=== PATIENT | female | born 1980 | race Caucasian/White ===

== ENCOUNTER 2017-05-10 11:39 | Observation (INO) | payer OTHER ==
[2017-05-10] MEDS ORDERED: ASPIRIN 81 MG PO STA (12:17)
--- NOTE | 2017-05-10 12:53 | ED ---
General Adult HPI - General Source: patient, RN notes reviewed Mode of arrival: ambulatory Limitations: no limitations <Ilda Martinez - Last Filed: 05/10/17 14:18> <Solomon Núñez - Last Filed: 05/10/17 14:29> - General Stated complaint: CHEST TIGHTNESS, ISADORA Time Seen by Provider: 05/10/17 12:12 - History of Present Illness Initial comments: 36 yo female presents to the ER with cc of increased heart rate palpitations. She states that this happened last night she woke up feeling fine and then this morning at work today and she started to feel this way again she states they took her pulse and it was up to 115. She states that it feels like a tightness in her chest she feels her heart starts beating. She starts to feel flushed. She does admit to a little twinge the left side of the neck. Patient does admit to minimal nausea. She states this happened about one month ago. She went to the emergency Hospital and had a negative stress test. Patient states this is much like that episode now. She was told that time most likely anxiety. They wanted to have her reevaluated due to the symptoms recurring. She does admit to history of diabetes. Patient denies any recent fever, chills, shortness of breath, back pain, abdominal pain, vomiting, numbness or tingling , dysuria or hematuria, constipation or diarrhea, headaches or visual changes, or any other current symptoms. (Ilda Martinez) - Related Data Home Medications Medication Instructions Recorded Confirmed ALPRAZolam [Xanax] 0.5 mg PO TID PRN 05/10/17 05/10/17 Melatonin 5 mg PO HS PRN 05/10/17 05/10/17 sitaGLIPtin [Januvia] 50 mg PO DAILY 05/10/17 05/10/17 Allergies Allergy/AdvReac Type Severity Reaction Status Date / Time alcohol Allergy Rash/Hives Verified 05/10/17 13:48 bupropion [From Wellbutrin] Allergy Rapid Verified 05/10/17 13:48 Heart Rate Penicillins Allergy Anaphylaxis Verified 05/10/17 13:48 Review of Systems ROS Other: All systems not noted in ROS Statement are negative. <Ilda Martinez - Last Filed: 05/10/17 14:18> ROS Other: All systems not noted in ROS Statement are negative. <WiltonSolomonVirgilio - Last Filed: 05/10/17 14:29> ROS Statement: Those systems with pertinent positive or pertinent negative responses have been documented in the HPI. Past Medical History Past Medical History: Diabetes Mellitus Additional Past Medical History / Comment(s): Type 2 DM History of Any Multi-Drug Resistant Organisms: None Reported Past Surgical History: Adenoidectomy, Cholecystectomy, Hernia Repair, Tonsillectomy Past Psychological History: Anxiety, Depression Smoking Status: Former smoker Past Alcohol Use History: None Reported Past Drug Use History: None Reported <Ilda Martinez - Last Filed: 05/10/17 14:18> General Exam Limitations: no limitations <Ilda Martinez - Last Filed: 05/10/17 14:18> <Solomon Núñez - Last Filed: 05/10/17 14:29> - General Exam Comments Initial Comments: General: The patient is awake and alert, in no distress, and does not appear acutely ill. Eye: Pupils are equal, round and reactive to light, extra-ocular movements are intact; there is normal conjunctiva bilaterally. No signs of icterus. Ears, nose, mouth and throat: There are moist mucous membranes. Neck: The neck is supple, there is no tenderness. Cardiovascular: There is a regular rate and rhythm. No murmur, rub or gallop is appreciated. Respiratory: Lungs are clear to auscultation, respirations are non-labored, breath sounds are equal. No wheezes, stridor, rales, or rhonchi. Gastrointestinal: Soft, non-distended, non-tender abdomen without masses or organomegaly noted. There is no rebound or guarding present. No CVA tenderness. Bowel sounds are unremarkable. Back: There is no tenderness to palpation in the midline. There is no obvious deformity. No rashes noted. Musculoskeletal: Normal ROM, no tenderness, There is no pedal edema. There is no calf tenderness or swelling. Sensation intact. Pulses equal bilaterally 2+. Neurological: CN II-XII intact, There are no obvious motor or sensory deficits. Coordination appears grossly intact. Speech is normal. Skin: Skin is warm and dry and no rashes or lesions are noted. Psychiatric: Cooperative, appropriate mood & affect, normal judgment. (Ilda Martinez) Vital Signs 05/10/17 11:55 Temperature 98.8 F Pulse Rate 108 H Respiratory 18 Rate Blood Pressure 179/91 O2 Sat by Pulse 100 Oximetry EKG Findings - EKG Comments: EKG Findings:: normal sinus rhythm 95 bpm, normal axis, no atopy, no S-T depressions or elevations, <Ilda Martinez - Last Filed: 05/10/17 14:18> Medical Decision Making - Lab Data Result diagrams: 05/10/17 12:53 05/10/17 12:53 - Radiology Data Radiology results: report reviewed, image reviewed <Ilda Martinez - Last Filed: 05/10/17 14:18> - Lab Data Result diagrams: 05/10/17 12:53 05/10/17 12:53 <Solomon Núñez - Last Filed: 05/10/17 14:29> - Medical Decision Making 36-year-old female presents for palpitations and chest tightness. At this time patient continues to have minimal pain. At this time due to the patient's diabetic history as well as obesity and the continued chest tightness we will admit the patient for cardiac rule out. This was discussed with Dr. Caldwell who is in agreement this plan. All questions have been answered. Patient will be admitted at this time. (Ilda Martinez) The patient was seen and examined. All diagnostics were reviewed. Case is discussed with Dr. Caldwell and he is agreeable to admission. Case is discussed with the PA and I agree with findings as documented. (Solomon Núñez) - Lab Data Lab Results 05/10/17 05/10/17 05/10/17 Range/Units 12:53 12:53 12:53 WBC 15.9 H (3.8-10.6) k/uL RBC 4.94 (3.80-5.40) m/uL Hgb 14.4 (11.4-16.0) gm/dL Hct 41.4 (34.0-46.0) % MCV 83.7 (80.0-100.0) fL MCH 29.0 (25.0-35.0) pg MCHC 34.7 (31.0-37.0) g/dL RDW 12.7 (11.5-15.5) % Plt Count 416 (150-450) k/uL Neutrophils % 77 % Lymphocytes % 17 % Monocytes % 4 % Eosinophils % 1 % Basophils % 0 % Neutrophils # 12.2 H (1.3-7.7) k/uL Lymphocytes # 2.7 (1.0-4.8) k/uL Monocytes # 0.7 (0-1.0) k/uL Eosinophils # 0.1 (0-0.7) k/uL Basophils # 0.1 (0-0.2) k/uL PT (9.0-12.0) sec INR (<1.2) APTT (22.0-30.0) sec D-Dimer (<0.60) mg/L FEU Sodium 142 (137-145) mmol/L Potassium 3.9 (3.5-5.1) mmol/L Chloride 106 (98-107) mmol/L Carbon Dioxide 25 (22-30) mmol/L Anion Gap 11 mmol/L BUN 11 (7-17) mg/dL Creatinine 0.64 (0.52-1.04) mg/dL Est GFR (CKD-EPI)AfAm >90 (>60 ml/min/1.73 sqM) Est GFR (CKD-EPI)NonAf >90 (>60 ml/min/1.73 sqM) Glucose 109 H (74-99) mg/dL Calcium 9.9 (8.4-10.2) mg/dL Magnesium 1.7 (1.6-2.3) mg/dL Total Bilirubin 0.5 (0.2-1.3) mg/dL AST 16 (14-36) U/L ALT 32 (9-52) U/L Alkaline Phosphatase 84 (38-126) U/L Total Creatine Kinase 50 (30-135) U/L CK-MB (CK-2) 0.6 (0.0-2.4) ng/mL CK-MB (CK-2) Rel Index 1.2 Troponin I <0.012 (0.000-0.034) ng/mL Total Protein 7.2 (6.3-8.2) g/dL Albumin 4.2 (3.5-5.0) g/dL 05/10/17 Range/Units 12:53 WBC (3.8-10.6) k/uL RBC (3.80-5.40) m/uL Hgb (11.4-16.0) gm/dL Hct (34.0-46.0) % MCV (80.0-100.0) fL MCH (25.0-35.0) pg MCHC (31.0-37.0) g/dL RDW (11.5-15.5) % Plt Count (150-450) k/uL Neutrophils % % Lymphocytes % % Monocytes % % Eosinophils % % Basophils % % Neutrophils # (1.3-7.7) k/uL Lymphocytes # (1.0-4.8) k/uL Monocytes # (0-1.0) k/uL Eosinophils # (0-0.7) k/uL Basophils # (0-0.2) k/uL PT 9.6 (9.0-12.0) sec INR 1.0 (<1.2) APTT 23.3 (22.0-30.0) sec D-Dimer 0.19 (<0.60) mg/L FEU Sodium (137-145) mmol/L Potassium (3.5-5.1) mmol/L Chloride (98-107) mmol/L Carbon Dioxide (22-30) mmol/L Anion Gap mmol/L BUN (7-17) mg/dL Creatinine (0.52-1.04) mg/dL Est GFR (CKD-EPI)AfAm (>60 ml/min/1.73 sqM) Est GFR (CKD-EPI)NonAf (>60 ml/min/1.73 sqM) Glucose (74-99) mg/dL Calcium (8.4-10.2) mg/dL Magnesium (1.6-2.3) mg/dL Total Bilirubin (0.2-1.3) mg/dL AST (14-36) U/L ALT (9-52) U/L Alkaline Phosphatase (38-126) U/L Total Creatine Kinase (30-135) U/L CK-MB (CK-2) (0.0-2.4) ng/mL CK-MB (CK-2) Rel Index Troponin I (0.000-0.034) ng/mL Total Protein (6.3-8.2) g/dL Albumin (3.5-5.0) g/dL Disposition Decision Date: 05/10/17 Decision Time: 14:13 <Ilda Martinez - Last Filed: 05/10/17 14:18> <Solomon Núñez - Last Filed: 05/10/17 14:29> Clinical Impression: Unstable angina Disposition: ADMITTED IP TO THIS HOSP Condition: Stable Referrals: Jeannette Brady MD [Primary Care Provider] - 1-2 days
[2017-05-10 13:14] LABS: Basophils # (A) 0.1 k/uL (0-0.2); Basophils % (A) 0 %; Eosinophils # (A) 0.1 k/uL (0-0.7); Eosinophils % (A) 1 %; HCT 41.4 % (34.0-46.0); HGB 14.4 gm/dL (11.4-16.0); Lymphocytes # (A) 2.7 k/uL (1.0-4.8); Lymphocytes % (A) 17 %; MCHC 34.7 g/dL (31.0-37.0); MCV 83.7 fL (80.0-100.0); Mean Platelet Volume 6.5; Monocytes # (A) 0.7 k/uL (0-1.0); Monocytes % (A) 4 %; Neutrophils # (A) 12.2 k/uL (1.3-7.7); Neutrophils % (A) 77 %; Platelet Count 416 k/uL (150-450); RBC 4.94 m/uL (3.80-5.40); RDW 12.7 % (11.5-15.5); WBC 15.9 k/uL (3.8-10.6)
[2017-05-10 13:20] LABS: ALT 32 U/L (9-52); AST 16 U/L (14-36); Albumin 4.2 g/dL (3.5-5.0); Alkaline Phosphatase 84 U/L (38-126); Anion Gap 11 mmol/L; Blood Urea Nitrogen 11 mg/dL (7-17); Calcium 9.9 mg/dL (8.4-10.2); Carbon Dioxide 25 mmol/L (22-30); Chloride 106 mmol/L (98-107); Glucose 109 mg/dL (74-99); Magnesium 1.7 mg/dL (1.6-2.3); Potassium 3.9 mmol/L (3.5-5.1); Sodium 142 mmol/L (137-145); Total Bilirubin 0.5 mg/dL (0.2-1.3); Total Protein 7.2 g/dL (6.3-8.2)
[2017-05-10 13:27] LABS: D-Dimer 0.19 mg/L FEU (<0.60); Partial Thromboplastin Time 23.3 sec (22.0-30.0); Prothrombin Time 9.6 sec (9.0-12.0)
[2017-05-10 13:31] LABS: Creatine Kinase 50 U/L (30-135)
--- NOTE | 2017-05-10 13:41 | XR ---
EXAMINATION TYPE: XR chest 2V DATE OF EXAM: 05/10/2017 COMPARISON: Previous dated 08/29/2009 HISTORY: Chest pain TECHNIQUE: Frontal and lateral views of the chest are obtained. FINDINGS: There is no focal air space opacity, pleural effusion, or pneumothorax seen. The cardiac silhouette size is within normal limits. The osseous structures are intact. There are overlying car diac leads, patient is rotated. IMPRESSION: No acute cardiopulmonary process.
[2017-05-10 13:43] LABS: Creatine Kinase MB 0.6 ng/mL (0.0-2.4); Troponin I <0.012 ng/mL (0.000-0.034)
[2017-05-10] MEDS ORDERED: NITROGLYCERIN SL TABS 0.4 MG TAB SUBLINGUAL PRN (14:13)
[2017-05-10] MEDS ORDERED: MELATONIN 5 MG TABLET PO PRN (14:15)
[2017-05-10] MEDS ORDERED: ALPRAZolam 0.5 MG TAB PO PRN (14:15)
[2017-05-10 14:52] LABS: Glucose,Whole Blood 95 mg/dL (75-99)
[2017-05-10 15:12] LABS: Appearance,Urine Clear (Clear); Bilirubin,Urine Negative (Negative); Blood,Urine Negative (Negative); Color,Urine Colorless; Glucose,Urine (UA) Negative (Negative); Ketones,Urine Negative (Negative); Leukocyte Esterase,Urine Negative (Negative); Nitrite,Urine Negative (Negative); Protein,Urine Negative (Negative); Specific Gravity,Urine 1.002 (1.001-1.035); Urobilinogen,Urine <2.0 mg/dL (<2.0)
[2017-05-10] MEDS ORDERED: RX INFO: IV CONTRAST WAS GIVEN 1 EACH MISC MISCELLANE PRN (16:56)
[2017-05-10] MEDS: SODIUM CHLORIDE 0.9% 1,000 ML IV SCH (17:30)
[2017-05-10] MEDS ORDERED: ACETAMINOPHEN TAB 500 MG TAB PO PRN (17:33)
[2017-05-10 17:54] LABS: Glucose,Whole Blood 134 mg/dL (75-99)
--- NOTE | 2017-05-10 18:12 | CT ---
EXAMINATION TYPE: CT chest w con DATE OF EXAM: 05/10/2017 COMPARISON: Chest x-ray same date, chest CT 08/31/2009 HISTORY: Chest pain. CT DLP: 587 mGycm Automated exposure control for dose reduction was used. CONTRAST: CT scan of the chest is performed with IV Contrast, patient injected with 100ml mL of Omnipaque 300. FINDINGS: LUNGS: The lungs are grossly clear, there is no concerning parenchymal mass or nodule identified. T here is no pleural effusion or pneumothorax seen. Some minimal subpleural nodularity likely represent s postinflammatory change. The tracheobronchial tree is patent. MEDIASTINUM: There are no greater than 1 cm hilar or mediastinal lymph nodes. No pericardial effusi on is seen. AORTA: No additional significant abnormality is seen. OTHER: Right kidney is somewhat lobular in appearance. Liver shows low attenuation in likely represe nts hepatic steatosis. Patient is post cholecystectomy IMPRESSION: No acute abnormality. Additional findings above.
--- NOTE | 2017-05-10 19:11 | HP ---
HISTORY AND PHYSICAL DATE OF SERVICE: 05/10/2017. CHIEF COMPLAINT: Chest pain. HISTORY OF PRESENT ILLNESS: This 36-year-old woman with a past medical history of multiple medical problems including diabetes type 2, history of adenoidectomy, cholecystectomy, history of anxiety and depression, being followed by Dr. Brady in the outpatient setting, was complaining of chest pain for the last several days. The pain was apparent for at least 1 week which was nagging in character, felt in the left side of the chest, radiating to the left shoulder. Yesterday the pain was about 6/10 in intensity. Because of the increase in the pain, she came to [facility] and was admitted for further evaluation and treatment. The patient also had high blood pressure and noted tachycardia also. The patient had an evaluation apparently about a month ago and cardiac workup was done during that time. The results are not available. The possibility of anxiety is also being considered. There is no history of fevers or rigors. No history of headache, loss of consciousness, seizures. PAST MEDICAL HISTORY: History of diabetes type 2, history of adenoidectomy, cholecystectomy, anxiety and depression. MEDICATIONS: 1. Melatonin 5 mg at bedtime p.r.n. 2. Janumet 50 mg. 3. Xanax 0.5 t.i.d. p.r.n. ALLERGIES: ALCOHOL, WELLBUTRIN, PENICILLIN. FAMILY HISTORY: No history of heart disease or strokes in family. SOCIAL HISTORY: Previous history of smoking. REVIEW OF SYSTEMS: ENT: No diminished hearing or vision. CARDIOVASCULAR: As mentioned earlier. RESPIRATORY: As mentioned earlier. GI: As mentioned. : No dysuria. ALLERGY/IMMUNOLOGY: As mentioned. MUSCULOSKELETAL: As mentioned earlier. HEMATOLOGY: No anemia. ENDOCRINE: No history of diabetes or hypothyroidism. CONSTITUTIONAL: Negative. RHEUMATOLOGY: Negative. PSYCHIATRY: As mentioned. PHYSICAL EXAMINATION: Alert, oriented x3. Pulse 97, blood pressure 130/60, respiration 18, temperature 98 degrees, pulse ox 98% On 2 L. HEENT: Conjunctivae normal. Oral mucosa moist. NECK: No jugular venous distention. No lymph node enlargement. CARDIOVASCULAR: S1 and S2 muffled. No S3 or S4. LUNGS: Breath sounds diminished at the bases. No rhonchi. No crackles. ABDOMEN: Soft, nontender. No mass palpable. LEGS: No edema, no swelling. NERVOUS SYSTEM: Higher functions as mentioned earlier. Moves all four limbs. LYMPHATICS: No lymph nodes palpable in the neck or axillae. SKIN: No ulcers or rash. LABS: CBC and BMP within normal. WBC 16.2. ASSESSMENT: 1. Left-sided chest pain, possibly musculoskeletal; rule out coronary artery disease. 2. Increased WBC. 3. Diabetes type 2. 4. History of adenoidectomy. 5. History of cholecystectomy. 6. History of hernia repair. 7. Anxiety and depression. RECOMMENDATIONS: Recommend to continue current management and symptomatic treatment. negative. Troponin also within normal limits. The chest x-ray note showed no acute cardiopulmonary lesions. EKG shows normal sinus rhythm with some ST-T changes. I would also recommend a CT scan also to complete the workup. Otherwise we will follow the patient closely. After discharge the patient will be asked to follow closely with Dr. Brady. SHELBY / ALEJANDRA: [id number] / MTDMark
[2017-05-10 19:19] VITALS: RESP 16
[2017-05-10 19:39] LABS: Creatine Kinase 41 U/L (30-135)
[2017-05-10 19:53] LABS: Creatine Kinase MB 0.4 ng/mL (0.0-2.4); Troponin I <0.012 ng/mL (0.000-0.034)
[2017-05-10] MEDS: NITROGLYCERIN OINT 1 INCH/GM PACKET TOPICAL SCH (20:30)
[2017-05-10 20:39] LABS: Glucose,Whole Blood 120 mg/dL (75-99)
[2017-05-10 20:46] LABS: Amphetamine Screen,Urine Not Detected (NotDetected); Barbiturate Screen,Urine Not Detected (NotDetected); Benzodiazepines Screen,Urine Not Detected (NotDetected); Cocaine Screen,Urine Not Detected (NotDetected); Methadone Screen, Urine Not Detected (NotDetected); Opiate Screen,Urine Not Detected (NotDetected); Oxycodone Screen, Urine Not Detected (NotDetected); Phencyclidine Screen,Urine Not Detected (NotDetected); Tricyclic Antidepressant,Urine Not Detected (NotDetected); Urn Cannabinoid Scrn Not Detected (NotDetected)
[2017-05-10] MEDS: IBUPROFEN 800 MG TAB PO PRN (21:12)
[2017-05-11 01:44] LABS: Creatine Kinase 32 U/L (30-135)
[2017-05-11 01:56] LABS: Creatine Kinase MB 0.2 ng/mL (0.0-2.4); Troponin I <0.012 ng/mL (0.000-0.034)
[2017-05-11] MEDS: SODIUM CHLORIDE 0.9% 1,000 ML IV SCH ×2 (03:58→10:38)
[2017-05-11 06:39] LABS: Glucose,Whole Blood 111 mg/dL (75-99)
[2017-05-11 07:12] LABS: Basophils # (A) 0.1 k/uL (0-0.2); Basophils % (A) 1 %; Eosinophils # (A) 0.2 k/uL (0-0.7); Eosinophils % (A) 2 %; HCT 38.4 % (34.0-46.0); HGB 13.3 gm/dL (11.4-16.0); Lymphocytes # (A) 3.5 k/uL (1.0-4.8); Lymphocytes % (A) 35 %; MCH 29.8 pg (25.0-35.0); MCHC 34.7 g/dL (31.0-37.0); MCV 85.8 fL (80.0-100.0); Mean Platelet Volume 6.5; Monocytes # (A) 0.5 k/uL (0-1.0); Monocytes % (A) 5 %; Neutrophils # (A) 5.5 k/uL (1.3-7.7); Neutrophils % (A) 56 %; Platelet Count 377 k/uL (150-450); RBC 4.47 m/uL (3.80-5.40); RDW 12.8 % (11.5-15.5); WBC 9.8 k/uL (3.8-10.6)
[2017-05-11 07:47] LABS: Anion Gap 9 mmol/L; Blood Urea Nitrogen 12 mg/dL (7-17); Calcium 9.3 mg/dL (8.4-10.2); Carbon Dioxide 27 mmol/L (22-30); Chloride 106 mmol/L (98-107); Cholesterol 174 mg/dL (<200); Glucose 112 mg/dL (74-99); HDL Cholesterol 32 mg/dL (40-60); LDL Cholesterol,Calculated 116 mg/dL (0-99); Potassium 4.4 mmol/L (3.5-5.1); Sodium 142 mmol/L (137-145); Triglycerides 132 mg/dL (<150)
[2017-05-11] MEDS ORDERED: ASPIRIN 81 MG PO SCH (09:00)
[2017-05-11] MEDS ORDERED: LINAGLIPTIN 5 MG TABLET PO SCH (09:00)
[2017-05-11] MEDS ORDERED: ASPIRIN 325 MG TAB PO SCH (09:00)
[2017-05-11] MEDS ORDERED: METOPROLOL TARTRATE 12.5 MG TAB PO SCH (09:10)
--- NOTE | 2017-05-11 11:24 | P.CRDCN ---
History of Present Illness Consult date: 05/11/17 Consult reason: hypertension History of present illness: Mrs. Rosales is a pleasant 36-year-old female past medical history significant for diabetes mellitus, anxiety and depression. She denies history of coronary artery disease personally but does have significant family history of premature heart disease. She states Sunday night while she was sitting down watching TV she started feeling palpitations, tightness in her chest and flushed feeling. These symptoms persisted for approximately an hour and she went to bed. She woke up in the morning feeling ok with no symptoms of palpitations, chest pain or flushed feeling. She proceeded to go to work with no symptoms. After she was there for a little while the symptoms seemed to come back. 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 She was extremely flushed feeling, heart racing and chest tightness. She recalls that she had these identical symptoms last month and was evaluated at [facility]. At that time she underwent a stress test, echocardiogram and medications were adjusted. Prior to that event she was taking hydrochlorothiazide. This was discontinued and she was started on lisinopril and atorvastatin. She states she took these medications for a couple of weeks and noticed she was feeling dizzy so she checked her blood pressure and it was low 70/30. She called her PCP and stopped the lisinopril. Blood pressure on arrival here was 179/91 heart rate 108. Subsequent blood pressure readings have all been less than 160 systolic this morning being 122/61 heart rate 74. EKG reveals sinus mechanism with no acute ST or T-wave abnormalities. Chest x- ray negative for acute cardiopulmonary process. CT negative for pulmonary embolism. Laboratory data was reviewed cardiac enzymes negative 3, d-dimer negative, LDL 116, WBC 15.9 on admission repeat this morning 9.8, hemoglobin 13.3, platelets 377, potassium 4.4, magnesium 1.7. Review of Systems The time of my exam: CONSTITUTIONAL: Denies fever. Denies chills. EYES: Denies blurred vision. Denies vision changes. Denies eye pain. EARS, NOSE, MOUTH & THROAT: Denies headache. Denies sore throat. Denies ear pain. CARDIOVASCULAR: Denies chest pain. Denies shortness of breath. Denies orthopnea. Denies PND. Denies palpitations. RESPIRATORY: Denies cough. GASTROINTESTINAL: Denies abdominal pain. Denies diarrhea. Denies constipation. Denies nausea. Denies vomiting. MUSCULOSKELETAL: Denies myalgias. INTEGUMENTARY: Denies pruitis. Denies rash. NEUROLOGIC: Denies numbness. Denies tingling. Denies weakness. PSYCHIATRIC: Denies anxiety. Denies depression. ENDOCRINE: Denies fatigue. Denies weight change. Denies polydipsia. Denies polyurina. GENITOURINARY: Denies burning, hematuria or urgency with micturation. HEMATOLOGIC: Denies history of anemia. Denies bleeding. Past Medical History Past Medical History: Diabetes Mellitus Additional Past Medical History / Comment(s): Type 2 DM History of Any Multi-Drug Resistant Organisms: None Reported Past Surgical History: Adenoidectomy, Cholecystectomy, Hernia Repair, Tonsillectomy Past Anesthesia/Blood Transfusion Reactions: No Reported Reaction Past Psychological History: Anxiety, Depression Smoking Status: Former smoker Past Alcohol Use History: None Reported Past Drug Use History: None Reported Medications and Allergies Home Medications Medication Instructions Recorded Confirmed Type ALPRAZolam [Xanax] 0.5 mg PO TID PRN 05/10/17 05/10/17 History Melatonin 5 mg PO HS PRN 05/10/17 05/10/17 History sitaGLIPtin [Januvia] 50 mg PO DAILY 05/10/17 05/10/17 History Atorvastatin [Lipitor] 20 mg PO DAILY #30 tab 05/11/17 Rx Metoprolol Tartrate [Lopressor] 12.5 mg PO BID #60 tab 05/11/17 Rx Allergies Allergy/AdvReac Type Severity Reaction Status Date / Time alcohol Allergy Rash/Hives Verified 05/10/17 13:48 bupropion [From Wellbutrin] Allergy Rapid Verified 05/10/17 13:48 Heart Rate Penicillins Allergy Anaphylaxis Verified 05/10/17 13:48 Physical Exam Vitals: Vital Signs Temp Pulse Pulse Resp BP BP Pulse Ox 05/11/17 08:00 74 16 05/11/17 07:38 97.9 F 74 16 122/61 98 05/11/17 03:43 98.1 F 78 16 126/79 96 05/11/17 03:28 16 05/10/17 23:37 16 05/10/17 23:32 98.2 F 72 16 118/74 95 03/08/18 20:00 16 05/10/17 19:18 99.0 F 85 16 139/93 98 05/10/17 17:38 99.0 F 98 17 159/99 97 05/10/17 16:43 98 F 87 18 131/65 99 05/10/17 14:53 88 18 131/64 98 05/10/17 11:55 98.8 F 108 H 18 179/91 100 Intake and Output 05/10/17 05/11/17 05/11/17 22:59 06:59 14:59 Intake Total 720 700 Balance 720 700 Intake: IV 700 Sodium Chloride 0.9% 1, 700 000 ml @ 100 mls/hr IV . Q10H [facility] Rx#:[id number] Oral 720 Other: Voiding Method Toilet Toilet Toilet # Voids 3 Weight 113.8 kg Blood pressure 122/61 heart rate 74 afebrile maintaining oxygen saturation on room air GENERAL: This is a 36-year-old female in no apparent distress at the time of my examination. Obese. HEENT: Head is atraumatic, normocephalic. Pupils are equal, round. Sclerae anicteric. Conjunctivae are clear. Mucous membranes of the mouth are moist. Neck is supple. There is no jugular venous distention. No carotid bruit is heard. LUNGS: Clear to auscultation no wheezes, rales or rhonchi. No chest wall tenderness is noted on palpation or with deep breathing. HEART: Regular rate and rhythm without murmurs, rubs or gallops. S1 and S2 heard. ABDOMEN: Soft, nontender. Bowel sounds are heard. No organomegaly noted. EXTREMITIES: No evidence of peripheral edema and no calf tenderness noted. VASCULAR: Radial and dorsalis pedis pulses palpated, no evidence of clubbing. NEUROLOGIC: Patient is awake, alert and oriented x3. Results 05/11/17 06:34 05/11/17 06:34 Cardiac Enzymes 05/10/17 05/10/17 05/10/17 Range/Units 12:53 12:53 18:58 AST 16 (14-36) U/L CK-MB (CK-2) 0.6 0.4 (0.0-2.4) ng/mL Troponin I <0.012 <0.012 (0.000-0.034) ng/mL 05/11/17 Range/Units 00:58 AST (14-36) U/L CK-MB (CK-2) 0.2 (0.0-2.4) ng/mL Troponin I <0.012 (0.000-0.034) ng/mL Coagulation 05/10/17 Range/Units 12:53 PT 9.6 (9.0-12.0) sec APTT 23.3 (22.0-30.0) sec Lipids 05/11/17 Range/Units 06:34 Triglycerides 132 (<150) mg/dL Cholesterol 174 (<200) mg/dL HDL Cholesterol 32 L (40-60) mg/dL CBC 05/10/17 05/11/17 Range/Units 12:53 06:34 WBC 15.9 H 9.8 (3.8-10.6) k/uL RBC 4.94 4.47 (3.80-5.40) m/uL Hgb 14.4 13.3 (11.4-16.0) gm/dL Hct 41.4 38.4 (34.0-46.0) % Plt Count 416 377 (150-450) k/uL Comprehensive Metabolic Panel 05/10/17 05/11/17 Range/Units 12:53 06:34 Sodium 142 142 (137-145) mmol/L Potassium 3.9 4.4 (3.5-5.1) mmol/L Chloride 106 106 (98-107) mmol/L Carbon Dioxide 25 27 (22-30) mmol/L BUN 11 12 (7-17) mg/dL Creatinine 0.64 0.71 (0.52-1.04) mg/dL Glucose 109 H 112 H (74-99) mg/dL Calcium 9.9 9.3 (8.4-10.2) mg/dL AST 16 (14-36) U/L ALT 32 (9-52) U/L Alkaline Phosphatase 84 (38-126) U/L Total Protein 7.2 (6.3-8.2) g/dL Albumin 4.2 (3.5-5.0) g/dL Current Medications Generic Name Dose Route Start Last Admin Trade Name Freq PRN Reason Stop Dose Admin Acetaminophen 1,000 mg 05/10/17 17:33 05/10/17 17:49 Tylenol Tab PO 1,000 mg Q6HR PRN Administration Fever and/ or Pain Alprazolam 0.5 mg 05/10/17 14:15 Xanax PO TID PRN Anxiety Aspirin 81 mg 05/11/17 09:00 Aspirin PO DAILY [facility] Sodium Chloride 1,000 mls @ 100 mls/hr 05/10/17 14:15 05/11/17 03:58 Saline 0.9% IV Not Given .Q10H [facility] Ibuprofen 800 mg 05/10/17 19:39 05/10/17 21:12 Motrin PO 800 mg TID PRN Administration Pain Linagliptin 5 mg 05/11/17 09:00 Tradjenta PO DAILY [facility] Melatonin 5 mg 05/10/17 14:15 Melatonin PO HS PRN Insomnia Metoprolol Tartrate 12.5 mg 05/11/17 09:10 Lopressor PO BID [facility] Miscellaneous Information 1 each 05/10/17 16:56 Rx Info: Iv Contrast Was Given MISCELLANE 05/12/17 16:57 DAILY PRN Per Protocol Nitroglycerin 0.4 mg 05/10/17 14:13 Nitrostat SUBLINGUAL Q5M PRN Chest Pain Intake and Output 05/10/17 05/11/17 05/11/17 22:59 06:59 14:59 Intake Total 720 700 Balance 720 700 Intake: IV 700 Sodium Chloride 0.9% 1, 700 000 ml @ 100 mls/hr IV . Q10H [facility] Rx#:[id number] Oral 720 Other: Voiding Method Toilet Toilet Toilet # Voids 3 Weight 113.8 kg 05/11/17 06:34 05/11/17 06:34 Assessment and Plan Assessment: ASSESSMENT 1. Palpitations 2. Chest pain, atypical. No EKG evidence of ischemia and negative cardiac enzymes. Recent stress test last month. 3. Hypertension 4. Diabetes mellitus 5. Anxiety 6. Obesity 7. Dyslipidemia PLAN Obtain records from recent work-up at [facility]. Start small dose beta anika. Start atorvastatin again. She is agreeable and denies side effects after starting last month. Recommend work-up form pheochromocytoma with 24-hr urine for catecholamines, metanephrines, normetanephrines and creatinine. This can be set up as an outpatient. Possibly testing can be explained and initiated before discharge. Lab has been called and she can return to the hospital when complete. Check liver function in 7-10 days. Follow up with Dr. Ram in 2-3 weeks. Nurse Practitioner note has been reviewed, I agree with a documented findings and plan of care. Patient was seen and examined.
[2017-05-11] MEDS ORDERED: ATORVASTATIN 20 MG TAB PO SCH (11:30)
[2017-05-11] MEDS: IBUPROFEN 800 MG TAB PO PRN (11:52)
[2017-05-11 12:16] LABS: Glucose,Whole Blood 131 mg/dL (75-99)
[2017-05-11 16:04] VITALS: BP 141/83; PULSE 61; TEMP 98.1
[2017-05-11 16:13] LABS: Hemoglobin A1C 5.4 % (4.0-6.0)
== END 2017-05-11 16:23 | disposition home or self-care (01) ==
LOC: EC 11:39 → 3OBS 14:30
PROVIDERS: ADMIT Hospitalist; ATTEND Hospitalist
DX: R07.89 Other chest pain (principal); R00.2 Palpitations; R00.0 Tachycardia, unspecified; I10 Essential (primary) hypertension; E78.5 Hyperlipidemia, unspecified; E11.9 Type 2 diabetes mellitus without complications; F32.9 Major depressive disorder, single episode, unspecified; F41.9 Anxiety disorder, unspecified; E66.9 Obesity, unspecified; Z87.891 Personal history of nicotine dependence; Z79.84 Long term (current) use of oral hypoglycemic drugs; Z79.899 Other long term (current) drug therapy; Z88.0 Allergy status to penicillin; Z88.8 Allergy status to other drugs, medicaments and biological substances; Z91.048 Other nonmedicinal substance allergy status; Z90.49 Acquired absence of other specified parts of digestive tract; Z82.49 Family history of ischemic heart disease and other diseases of the circulatory system; Z68.39 Body mass index [BMI] 39.0-39.9, adult
CPT/HCPCS: 99285 ×2; 96360; 96361; 36415; 93005; 85379; 80061; 80053; 80048; 85652; 82550 ×2; 82553 ×2; 83735; 84484 ×2; 85025 ×2; 85610; 85730; 86140; 81003; 80306; 83036; 71046; 71260; G0378 ×2; Q9967

== ENCOUNTER → 2017-05-12 | Outpatient (CLI) | payer OTHER ==
[2017-05-12 20:43] LABS: Creatinine 24 Hour,Urine 1424.8 mg/24hr (800.0-1800.0)
[2017-05-15 10:57] LABS: Dopamine 24 Hr Urine 425 ug/day (65-400); Epinephrine 24 Hr Urine 7 ug/day (0-20); Norepinephrine 24 Hr Urine 22 ug/day (15-80); Total Catecholamines Urine 29 ug/day (15-100); Urine Creatinine,24 Hr 1.7 gm/24h (0.8-1.8)
[2017-05-15 11:28] LABS: Metanephrines 24 Hour,Urine 181 ug/day (52-341); Normetanephrine 24 Hour,Urine 248 ug/day (88-444); Total Metanephrines 24 Hour,Ur 429 ug/day (140-785)
== END | disposition home or self-care (01) ==
LOC: LABMAIN 18:33
PROVIDERS: ATTEND Nurse Practitioner
DX: D35.00 Benign neoplasm of unspecified adrenal gland (principal)
CPT/HCPCS: 81050; 82384; 82570; 83835

== ENCOUNTER → 2017-06-06 | Outpatient (CLI) | payer OTHER | END | disposition home or self-care (01) | LOC: RADMRIMAIN 20:34 | PROVIDERS: ATTEND Family Medicine | DX: Z53.9 Procedure and treatment not carried out, unspecified reason (principal) ==

== ENCOUNTER → 2017-07-06 | Outpatient (CLI) | payer OTHER ==
--- NOTE | 2017-07-06 09:58 | US ---
EXAMINATION TYPE: US renal artery duplex complet DATE OF EXAM: 07/06/2017 COMPARISON: NONE CLINICAL HISTORY: I10 hypertension. MEASUREMENTS: RENAL SIZE: Rt Kidney: 9.2 x 3.7 x 3.8cm Lt Kidney: 12.1 x 4.6 x 5.5cm RESISTANCE INDEX Right: 0.78 Left: 0.66 RA/AO RATIO (< 3.5 ) Right: 1.9 Left: 1.6 RA VELOCITY ( < 180 cm/s) Right: 147 Left: 130 Patient of large body habitus. Technically difficult study. Assessment for mass is limited. Kidney not symmetrical, right measures significantly smaller, right lower pole stone seen measuring 0 .4 x 0.3 x 0.5cm. IMPRESSION: 1. No diagnostic evidence of renal artery stenosis as visualized. 2. 4 mm right renal stone suspected. No evidence of obstruction.
== END | disposition home or self-care (01) ==
LOC: RADUSMAIN 07:45
PROVIDERS: ATTEND Internal Medicine
DX: N20.0 Calculus of kidney (principal); I10 Essential (primary) hypertension
CPT/HCPCS: 93975

== ENCOUNTER → 2017-07-19 | Outpatient (CLI) | payer OTHER ==
[2017-07-19 10:13] LABS: HCT 42.2 % (34.0-46.0); HGB 14.2 gm/dL (11.4-16.0); MCH 29.4 pg (25.0-35.0); MCHC 33.6 g/dL (31.0-37.0); MCV 87.5 fL (80.0-100.0); Mean Platelet Volume 6.3; Platelet Count 437 k/uL (150-450); RBC 4.82 m/uL (3.80-5.40); RDW 13.1 % (11.5-15.5); WBC 12.9 k/uL (3.8-10.6)
[2017-07-19 10:20] LABS: Appearance,Urine Clear (Clear); Bilirubin,Urine Negative (Negative); Blood,Urine Negative (Negative); Color,Urine Yellow; Glucose,Urine (UA) Negative (Negative); Ketones,Urine Negative (Negative); Leukocyte Esterase,Urine Negative (Negative); Nitrite,Urine Negative (Negative); Protein,Urine Negative (Negative); Specific Gravity,Urine 1.017 (1.001-1.035); Urobilinogen,Urine <2.0 mg/dL (<2.0)
[2017-07-19 10:41] LABS: ALT 29 U/L (9-52); AST 17 U/L (14-36); Albumin 4.5 g/dL (3.5-5.0); Alkaline Phosphatase 78 U/L (38-126); Anion Gap 15 mmol/L; Blood Urea Nitrogen 13 mg/dL (7-17); Calcium 9.6 mg/dL (8.4-10.2); Carbon Dioxide 21 mmol/L (22-30); Chloride 105 mmol/L (98-107); Glucose 121 mg/dL (74-99); Magnesium 1.8 mg/dL (1.6-2.3); Phosphorus 3.9 mg/dL (2.5-4.5); Potassium 4.8 mmol/L (3.5-5.1); Sodium 141 mmol/L (137-145); Total Bilirubin 0.6 mg/dL (0.2-1.3); Total Protein 7.2 g/dL (6.3-8.2)
[2017-07-19 16:13] LABS: Iron Saturation 19.38 (12.00-45.00)
[2017-07-19 16:26] LABS: Vitamin D 25 Hydroxy 11.8 ng/mL (30.0-100.0)
== END | disposition home or self-care (01) ==
LOC: LABWHC1 09:22
PROVIDERS: ATTEND Internal Medicine
DX: D64.9 Anemia, unspecified (principal); I10 Essential (primary) hypertension; M10.9 Gout, unspecified; E83.39 Other disorders of phosphorus metabolism
CPT/HCPCS: 36415; 80053; 81003; 82043; 82088; 82306; 82570; 82728; 83540; 83550; 83735; 83835; 84100; 84443; 85027

== ENCOUNTER → 2017-08-27 | Outpatient (CLI) | payer OTHER ==
[2017-08-27 13:12] LABS: ALT 35 U/L (9-52); AST 19 U/L (14-36); Albumin 4.1 g/dL (3.5-5.0); Alkaline Phosphatase 61 U/L (38-126); Anion Gap 12 mmol/L; Blood Urea Nitrogen 16 mg/dL (7-17); Calcium 10.1 mg/dL (8.4-10.2); Carbon Dioxide 26 mmol/L (22-30); Chloride 103 mmol/L (98-107); Glucose 120 mg/dL (74-99); Potassium 4.7 mmol/L (3.5-5.1); Sodium 141 mmol/L (137-145); Total Bilirubin 0.4 mg/dL (0.2-1.3); Total Protein 6.6 g/dL (6.3-8.2)
[2017-08-27 13:38] LABS: Appearance,Urine Clear (Clear); Bacteria,Urine Rare /hpf; Bilirubin,Urine Negative (Negative); Blood,Urine Negative (Negative); Color,Urine Yellow; Glucose,Urine (UA) Negative (Negative); Ketones,Urine Negative (Negative); Leukocyte Esterase,Urine Large (Negative); Mucus,Urine Rare /hpf; Nitrite,Urine Negative (Negative); Protein,Urine Negative (Negative); RBC,Urine 1 /hpf (0-5); Specific Gravity,Urine 1.017 (1.001-1.035); Squamous Epithelial Cell,Urine 6 /hpf (0-4); Urobilinogen,Urine <2.0 mg/dL (<2.0); WBC,Urine 1 /hpf (0-5)
== END | disposition home or self-care (01) ==
LOC: LABWHC1 12:07
PROVIDERS: ATTEND Nurse Practitioner Family
DX: I10 Essential (primary) hypertension (principal); R80.9 Proteinuria, unspecified; E55.9 Vitamin D deficiency, unspecified
CPT/HCPCS: 36415; 80053; 81001; 82306

== ENCOUNTER → 2018-06-13 | Outpatient (CLI) | payer OTHER ==
--- NOTE | 2018-06-13 15:08 | US ---
EXAMINATION TYPE: US pelvic complete DATE OF EXAM: 06/13/2018 COMPARISON: CT 2010 CLINICAL HISTORY: N92.0 Menorrhagia. Heavy painful cycles x multiple years, 3, para 2, miscar riage 1 TECHNIQUE: . Transabdominal sonographic images of the pelvis were acquired. Transvaginal sonographi c images were medically necessary to better assess the following anatomy: ovaries Date of LMP: 05/25/2018 EXAM MEASUREMENTS: Uterus: 7.9 x 4.2 x 4.2 cm Endometrial Stripe: 0.7 cm Right Ovary: 3.2 x 2.5 x 2.4 cm Left Ovary: not seen 1. Uterus: heterogeneous, multiple nabothian cysts 2. Endometrium: wnl 3. Right Ovary: 1.5 x 1.9 x 1.3cm cystic area 4. Left Ovary: not seen 5. Bilateral Adnexa: wnl 6. Posterior cul-de-sac: wnl IMPRESSION: 1. The uterine myometrium is heterogeneous which is a nonspecific finding. No discrete fibroids. 2. 1.9 cm right ovarian cyst has a simple appearance.
== END | disposition home or self-care (01) ==
LOC: RADUSWWP 14:05
PROVIDERS: ATTEND Family Medicine
DX: N83.201 Unspecified ovarian cyst, right side (principal)
CPT/HCPCS: 76830; 76856

== ENCOUNTER → 2018-10-14 | Outpatient (CLI) | payer OTHER ==
--- NOTE | 2018-10-14 09:51 | FL ---
ESOPHOGRAM. HISTORY: Dysphagia Esophagram was performed per the air contrast technique. The patient swallowed barium and effervesce nt crystals without difficulty or delay. Esophageal peristalsis and motility appear to be within normal limits. There is no evidence for filling defect, mass or diverticulum. No hiatal hernia seen. Subsequently single contrast cervical esophagram was performed which fails demonstrate evidence for a spiration penetration or mass. IMPRESSION: Unremarkable study.
== END | disposition home or self-care (01) ==
LOC: RADUSWWP 09:01
PROVIDERS: ATTEND Family Medicine
DX: F45.8 Other somatoform disorders (principal)
CPT/HCPCS: 74220

== ENCOUNTER 2018-10-31 21:47 | Emergency (ER) | payer OTHER ==
[2018-10-31] MEDS ORDERED: ONDANSETRON 4 MG/2 ML VIAL IVP STA (22:55)
[2018-10-31] MEDS ORDERED: SODIUM CHLORIDE 0.9% 1,000 ML IV STA (22:55)
--- NOTE | 2018-10-31 23:01 | ED ---
General Adult HPI - General Chief complaint: Neck Pain/Injury Stated complaint: neck pain, nausea Time Seen by Provider: 10/31/18 22:29 Source: patient Mode of arrival: ambulatory Limitations: no limitations - History of Present Illness Initial comments: Patient is a relatively healthy obese 37-year-old female who presents the emergency department today for evaluation of generalized malaise, body aches and cervical lymphadenopathy. Patient reports that throughout the day she wasn't feeling too well after returning home she began to feel very fatigued, slightly nauseated, and generalized malaise bodyaches and noticed that she had tender cervical lymphadenopathy. Patient reports she didn't feel like eating or drinking she didn't take any medications and came to the ER for further evaluation. 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 She denies any history of recurrent strep infections. She denies any ear pain. - Related Data Home Medications Medication Instructions Recorded Confirmed sitaGLIPtin [Januvia] 50 mg PO DAILY 05/10/17 10/31/18 Acetaminophen [Tylenol Extra 1,000 mg PO TID PRN 10/31/18 10/31/18 Strength] Albuterol Inhaler [Ventolin Hfa 2 puff INHALATION RT-Q6H PRN 10/31/18 10/31/18 Inhaler] Atorvastatin [Lipitor] 20 mg PO HS 10/31/18 10/31/18 Cholecalciferol [Vitamin D3 (25 1,000 unit PO DAILY 10/31/18 10/31/18 Mcg = 1000 Iu)] L.acidoph,Paracasei, B.lactis 1 cap PO DAILY 10/31/18 10/31/18 [Probiotic] Metoprolol Tartrate [Lopressor] 25 mg PO DAILY 10/31/18 10/31/18 Omeprazole 20 mg PO DAILY 10/31/18 10/31/18 Previous Rx's Medication Instructions Recorded Aspirin 81 mg PO DAILY chew 05/11/17 Allergies Allergy/AdvReac Type Severity Reaction Status Date / Time alcohol Allergy Rash/Hives Verified 10/31/18 22:31 Penicillins Allergy Anaphylaxis Verified 10/31/18 22:31 bupropion [From Wellbutrin] AdvReac Rapid Verified 10/31/18 22:31 Heart Rate Review of Systems ROS Statement: Those systems with pertinent positive or pertinent negative responses have been documented in the HPI. ROS Other: All systems not noted in ROS Statement are negative. Past Medical History Past Medical History: Diabetes Mellitus Additional Past Medical History / Comment(s): Type 2 DM History of Any Multi-Drug Resistant Organisms: None Reported Past Surgical History: Adenoidectomy, Cholecystectomy, Hernia Repair, Tonsillectomy Past Anesthesia/Blood Transfusion Reactions: No Reported Reaction Past Psychological History: Anxiety, Depression Smoking Status: Former smoker Past Alcohol Use History: None Reported Past Drug Use History: None Reported General Exam - General Exam Comments Initial Comments: Physical Exam GENERAL: Patient is well-developed and well-nourished. Appears uncomfortable, mildly dehydrated HENT: Normocephalic, Atraumatic. Tender preauricular and anterior cervical lymphadenopathy Posterior oropharynx normal no signs of erythema or exudates TMs normal bilaterally EYES: PERRL, EOMI PULMONARY: Unlabored respirations. No audible rales rhonchi or wheezing was noted. CARDIOVASCULAR: There is a regular rate and rhythm without any murmurs gallops or rubs. ABDOMEN: Soft and nontender with normal bowel sounds. SKIN: Skin is clear with no lesions or rashes and otherwise unremarkable. : Deferred NEUROLOGIC: Patient is alert and oriented x3. Moving all extremities spontaneously MUSCULOSKELETAL: Normal extremities with adequate strength and full range of motion. No lower extremity swelling or edema. No calf tenderness. PSYCHIATRIC: Normal psychiatric evaluation. Limitations: no limitations Course Vital Signs 10/31/18 11/01/18 22:02 01:17 Temperature 98.7 F 98 F Pulse Rate 87 85 Respiratory 18 16 Rate Blood Pressure 147/89 122/72 O2 Sat by Pulse 97 98 Oximetry Medical Decision Making - Medical Decision Making The patient was seen and evaluated history is obtained from the patient Patient presenting with generalized malaise bodyaches anterior cervical lymphadenopathy more prominent on the right than the left Physical exam is otherwise unremarkable patient appears to be mildly dehydrated and appears as though she's not feeling well as an labs and imaging were obtained, patient has mild leukocytosis otherwise labs are within normal limits Patient was reevaluated after fluids and reports feeling much better. At this time I suspect the patient is likely suffering from a viral illness. I did discuss with the patient whether or not she had cats she does have exposure to cats but denies any scratches. Physical exam revealed no scratches therefore have very low suspicion for the lymphadenopathy being secondary to Scratch fever. All questions pertaining to care were answered return parameters just a discussed, the importance of supportive care including hydration and symptom management with Tylenol and Motrin were discussed. Patient was discharged home in stable condition. - Lab Data Result diagrams: 10/31/18 23:22 10/31/18 23:22 Lab Results 10/31/18 10/31/18 10/31/18 Range/Units 23:22 23:22 23:22 WBC 15.8 H (3.8-10.6) k/uL RBC 4.73 (3.80-5.40) m/uL Hgb 14.0 (11.4-16.0) gm/dL Hct 42.7 (34.0-46.0) % MCV 90.4 (80.0-100.0) fL MCH 29.7 (25.0-35.0) pg MCHC 32.9 (31.0-37.0) g/dL RDW 12.8 (11.5-15.5) % Plt Count 382 (150-450) k/uL Neutrophils % 66 % Lymphocytes % 27 % Monocytes % 5 % Eosinophils % 1 % Basophils % 0 % Neutrophils # 10.5 H (1.3-7.7) k/uL Lymphocytes # 4.2 (1.0-4.8) k/uL Monocytes # 0.7 (0-1.0) k/uL Eosinophils # 0.1 (0-0.7) k/uL Basophils # 0.1 (0-0.2) k/uL Sodium 141 (137-145) mmol/L Potassium 4.1 (3.5-5.1) mmol/L Chloride 106 (98-107) mmol/L Carbon Dioxide 26 (22-30) mmol/L Anion Gap 9 mmol/L BUN 14 (7-17) mg/dL Creatinine 0.63 (0.52-1.04) mg/dL Est GFR (CKD-EPI)AfAm >90 (>60 ml/min/1.73 sqM) Est GFR (CKD-EPI)NonAf >90 (>60 ml/min/1.73 sqM) Glucose 169 H (74-99) mg/dL Calcium 9.9 (8.4-10.2) mg/dL Total Bilirubin 0.3 (0.2-1.3) mg/dL AST 17 (14-36) U/L ALT 27 (9-52) U/L Alkaline Phosphatase 91 (38-126) U/L Total Protein 7.3 (6.3-8.2) g/dL Albumin 4.3 (3.5-5.0) g/dL Amylase 60 (30-110) U/L Lipase 75 (23-300) U/L Urine Color Yellow Urine Appearance Clear (Clear) Urine pH 6.0 (5.0-8.0) Ur Specific [place] 1.023 (1.001-1.035) Urine Protein Negative (Negative) Urine Glucose (UA) Negative (Negative) Urine Ketones Negative (Negative) Urine Blood Trace H (Negative) Urine Nitrite Negative (Negative) Urine Bilirubin Negative (Negative) Urine Urobilinogen <2.0 (<2.0) mg/dL Ur Leukocyte Esterase Negative (Negative) Urine RBC 1 (0-5) /hpf Urine WBC 1 (0-5) /hpf Ur Squamous Epith Cells 5 H (0-4) /hpf Urine Bacteria Many H (None) /hpf Urine Mucus Rare H (None) /hpf Urine HCG, Qual (Not Detectd) 10/31/18 Range/Units 23:22 WBC (3.8-10.6) k/uL RBC (3.80-5.40) m/uL Hgb (11.4-16.0) gm/dL Hct (34.0-46.0) % MCV (80.0-100.0) fL MCH (25.0-35.0) pg MCHC (31.0-37.0) g/dL RDW (11.5-15.5) % Plt Count (150-450) k/uL Neutrophils % % Lymphocytes % % Monocytes % % Eosinophils % % Basophils % % Neutrophils # (1.3-7.7) k/uL Lymphocytes # (1.0-4.8) k/uL Monocytes # (0-1.0) k/uL Eosinophils # (0-0.7) k/uL Basophils # (0-0.2) k/uL Sodium (137-145) mmol/L Potassium (3.5-5.1) mmol/L Chloride (98-107) mmol/L Carbon Dioxide (22-30) mmol/L Anion Gap mmol/L BUN (7-17) mg/dL Creatinine (0.52-1.04) mg/dL Est GFR (CKD-EPI)AfAm (>60 ml/min/1.73 sqM) Est GFR (CKD-EPI)NonAf (>60 ml/min/1.73 sqM) Glucose (74-99) mg/dL Calcium (8.4-10.2) mg/dL Total Bilirubin (0.2-1.3) mg/dL AST (14-36) U/L ALT (9-52) U/L Alkaline Phosphatase (38-126) U/L Total Protein (6.3-8.2) g/dL Albumin (3.5-5.0) g/dL Amylase (30-110) U/L Lipase (23-300) U/L Urine Color Urine Appearance (Clear) Urine pH (5.0-8.0) Ur Specific [place] (1.001-1.035) Urine Protein (Negative) Urine Glucose (UA) (Negative) Urine Ketones (Negative) Urine Blood (Negative) Urine Nitrite (Negative) Urine Bilirubin (Negative) Urine Urobilinogen (<2.0) mg/dL Ur Leukocyte Esterase (Negative) Urine RBC (0-5) /hpf Urine WBC (0-5) /hpf Ur Squamous Epith Cells (0-4) /hpf Urine Bacteria (None) /hpf Urine Mucus (None) /hpf Urine HCG, Qual Not Detected (Not Detectd) Disposition Clinical Impression: Viral illness, Lymphadenopathy Disposition: HOME SELF-CARE Condition: Stable Instructions (If sedation given, give patient instructions): Lymphadenopathy (ED) Is patient prescribed a controlled substance at d/c from ED?: No Referrals: Jeannette Brady MD [Primary Care Provider] - 1-2 days
[2018-10-31 23:31] LABS: Basophils # (A) 0.1 k/uL (0-0.2); Basophils % (A) 0 %; Eosinophils # (A) 0.1 k/uL (0-0.7); Eosinophils % (A) 1 %; HCT 42.7 % (34.0-46.0); Lymphocytes # (A) 4.2 k/uL (1.0-4.8); Lymphocytes % (A) 27 %; MCH 29.7 pg (25.0-35.0); MCHC 32.9 g/dL (31.0-37.0); MCV 90.4 fL (80.0-100.0); Mean Platelet Volume 6.2; Monocytes # (A) 0.7 k/uL (0-1.0); Monocytes % (A) 5 %; Neutrophils # (A) 10.5 k/uL (1.3-7.7); Neutrophils % (A) 66 %; Platelet Count 382 k/uL (150-450); RBC 4.73 m/uL (3.80-5.40); RDW 12.8 % (11.5-15.5); WBC 15.8 k/uL (3.8-10.6)
[2018-10-31 23:40] LABS: ALT 27 U/L (9-52); AST 17 U/L (14-36); African American GFR (CKD) >90 (>60 ml/min/1.73 sqM); Albumin 4.3 g/dL (3.5-5.0); Alkaline Phosphatase 91 U/L (38-126); Amylase 60 U/L (30-110); Anion Gap 9 mmol/L; Blood Urea Nitrogen 14 mg/dL (7-17); Calcium 9.9 mg/dL (8.4-10.2); Carbon Dioxide 26 mmol/L (22-30); Chloride 106 mmol/L (98-107); Glucose 169 mg/dL (74-99); Potassium 4.1 mmol/L (3.5-5.1); Sodium 141 mmol/L (137-145); Total Bilirubin 0.3 mg/dL (0.2-1.3); Total Protein 7.3 g/dL (6.3-8.2)
[2018-10-31 23:41] LABS: Appearance,Urine Clear (Clear); Bacteria,Urine Many /hpf; Bilirubin,Urine Negative (Negative); Blood,Urine Trace (Negative); Color,Urine Yellow; Glucose,Urine (UA) Negative (Negative); Ketones,Urine Negative (Negative); Leukocyte Esterase,Urine Negative (Negative); Mucus,Urine Rare /hpf; Nitrite,Urine Negative (Negative); Protein,Urine Negative (Negative); RBC,Urine 1 /hpf (0-5); Specific Gravity,Urine 1.023 (1.001-1.035); Squamous Epithelial Cell,Urine 5 /hpf (0-4); Urobilinogen,Urine <2.0 mg/dL (<2.0); WBC,Urine 1 /hpf (0-5)
[2018-11-01 01:18] VITALS: BP 122/72; PULSE 85; RESP 16; TEMP 98
== END 2018-11-01 01:22 | disposition home or self-care (01) ==
LOC: EC 21:47
DX: B34.9 Viral infection, unspecified (principal); E11.9 Type 2 diabetes mellitus without complications; E66.9 Obesity, unspecified; Z68.41 Body mass index [BMI] 40.0-44.9, adult; Z87.891 Personal history of nicotine dependence; Z79.899 Other long term (current) drug therapy; Z91.048 Other nonmedicinal substance allergy status; Z88.8 Allergy status to other drugs, medicaments and biological substances; Z88.0 Allergy status to penicillin
CPT/HCPCS: 36415; 80053; 82150; 83690; 85025; 81001; 81025; 99283; 96374; 96361; J2405

== ENCOUNTER 2019-10-02 13:29 | Emergency (ER) | payer OTHER ==
[2019-10-02 13:38] VITALS: RESP 18
[2019-10-02] MEDS ORDERED: SODIUM CHLORIDE 0.9% 1,000 ML IV STA (14:15)
[2019-10-02] MEDS ORDERED: MORPHINE SULFATE 4 MG/ML SYRINGE IV STA (14:15)
[2019-10-02] MEDS ORDERED: ONDANSETRON 4 MG/2 ML VIAL IVP STA (14:15)
--- NOTE | 2019-10-02 14:22 | ED ---
General Adult HPI - General Chief complaint: Abdominal Pain Stated complaint: back and left side pain, naueasa Time Seen by Provider: 10/02/19 13:54 Source: patient, family, RN notes reviewed, old records reviewed Mode of arrival: wheelchair Limitations: no limitations - History of Present Illness Initial comments: 38-year-old female patient presents ED chief complaint left flank pain. Reports his symptoms began approximately 4:00 this morning. Reports that she has had some associated nausea and one episode of emesis while in the emergency department. Reports that she does have history of a kidney stone is seen within the kidney on ultrasound. Denies any other complaints. Systemic: Pt denies fatigue, fever/chills, rash. Pt denies weakness, night sweats, weight loss. Neuro: Pt denies headache, visual disturbances, syncope or pre-syncope. HEENT: Pt denies ocular discharge or irritation, otalgia, rhinorrhea, pharyngitis or notable lymphadenopathy. Cardiopulmonary: Pt denies chest pain, SOB, heart palpitations, dyspnea on exertion. Abdominal/GI: Pt denies abdominal pain, n/v/d. : Pt denies dysuria, burning w/ urination, frequency/urgency. Denies new onset urinary or bowel incontinence. MSK: Pt denies myalgia, loss of strength or function in extremities. Neuro: Pt denies new onset weakness, paresthesias. - Related Data Home Medications Medication Instructions Recorded Confirmed Atorvastatin [Lipitor] 20 mg PO HS 10/31/18 10/02/19 Cholecalciferol [Vitamin D3 (25 1,000 unit PO DAILY 10/31/18 10/02/19 Mcg = 1000 Iu)] Metoprolol Tartrate [Lopressor] 25 mg PO DAILY 10/31/18 10/02/19 Omeprazole 20 mg PO DAILY 10/31/18 10/02/19 ALPRAZolam [Xanax] 0.5 mg PO BID PRN 10/02/19 10/02/19 Albuterol Sulfate [Ventolin HFA] 2 puff INHALATION RT-TID 10/02/19 10/02/19 Famotidine 20 mg PO DAILY 10/02/19 10/02/19 HYDROcodone/APAP 7.5-325MG [[place] 1 tab PO ONCE PRN 10/02/19 10/02/19 7.5-325] metFORMIN HCL ER [Glucophage Xr] 500 mg PO DAILY 10/02/19 10/02/19 Previous Rx's Medication Instructions Recorded Aspirin 81 mg PO DAILY chew 05/11/17 Sulfamethox-Tmp 800-160Mg [Bactrim 1 tab PO Q12HR 10 Days #20 tab 10/02/19 DS 800-160 mg] Allergies Allergy/AdvReac Type Severity Reaction Status Date / Time alcohol Allergy Rash/Hives Verified 10/02/19 14:18 Penicillins Allergy Anaphylaxis Verified 10/02/19 14:18 bupropion [From Wellbutrin] AdvReac Rapid Verified 10/02/19 14:18 Heart Rate Review of Systems ROS Statement: Those systems with pertinent positive or pertinent negative responses have been documented in the HPI. ROS Other: All systems not noted in ROS Statement are negative. Past Medical History Past Medical History: Diabetes Mellitus Additional Past Medical History / Comment(s): Type 2 DM History of Any Multi-Drug Resistant Organisms: None Reported Past Surgical History: Adenoidectomy, Cholecystectomy, Hernia Repair, Tonsillectomy Past Anesthesia/Blood Transfusion Reactions: No Reported Reaction Past Psychological History: Anxiety, Depression Smoking Status: Former smoker Past Alcohol Use History: None Reported Past Drug Use History: None Reported General Exam - General Exam Comments Initial Comments: Constitutional: NAD, AOX3, Pt has pleasant affect. HEENT: NC/AT, trachea midline, neck supple. Posterior pharynx non erythematous, without exudates. External ears appear normal, without discharge. Mucous membranes moist. Eyes PERRLA, EOM intact. There is no scleral icterus. No pallor noted. Cardiopulmonary: RRR, no murmurs, rubs or gallops, no JVD noted. Lungs CTAB in a nterior and posterior ndiaye. No peripheral edema. Abdominal exam: Abdomen soft and non-distended. Abdomen non-tender to palpation in all 4 quadrants. Left flank mildly tender to palpation. Bowel sounds active in LLQ. No hepatosplenomegaly. No ecchymosis Neuro: CN II-XII grossly intact. No nuchal rigidity. No raccon eyes, no ordonez sign, no hemotympanum. No cervical spinal tenderness. MSK: Full active ROM in upper and lower extremities, 5/5 stregnth. Limitations: no limitations Course Vital Signs 10/02/19 13:36 Temperature 98.2 F Pulse Rate 61 Respiratory 18 Rate Blood Pressure 136/88 O2 Sat by Pulse 97 Oximetry Medical Decision Making - Medical Decision Making 38-year-old female patient presents ED chief complaint left flank pain. Reports his symptoms began approximately 4:00 this morning. Reports that she has had some associated nausea and one episode of emesis while in the emergency department. Reports that she does have history of a kidney stone is seen within the kidney on ultrasound. Denies any other complaints. Patient will signs are stable, afebrile. Physical exam displayed left flank mild tender palpation. Laboratory investigations reveal leukocytosis of 20. Patient has been having nausea and vomiting. Hyperglycemia which patient has history of diabetes. UA displayed a large amount of blood leukocyte esterase 55 white cells. Patient declining any urinary symptoms. CT abdomen and pelvis without contrast display ed mild left hydronephrosis secondary 3 mm UVJ calculi. Cortical loss involving the right kidney compatible with possible chronic kidney disease. 2.87 new soft tissue mass in the left adnexa likely related to left ovary recommended follow- up on ultrasound. I'll findings related to patient. Patient pain well- controlled. Patient was placed on Bactrim and will have outpatient follow-up with urology tomorrow. Is also primary care provider. Case discussed with Dr. Azevedo. - Lab Data Result diagrams: 10/02/19 14:32 10/02/19 14:32 Lab Results 10/02/19 10/02/19 10/02/19 Range/Units 14:10 14:10 14:32 WBC 20.2 H (3.8-10.6) k/uL RBC 4.75 (3.80-5.40) m/uL Hgb 14.0 (11.4-16.0) gm/dL Hct 43.7 (34.0-46.0) % MCV 92.1 (80.0-100.0) fL MCH 29.4 (25.0-35.0) pg MCHC 31.9 (31.0-37.0) g/dL RDW 12.2 (11.5-15.5) % Plt Count 384 (150-450) k/uL Neutrophils % 86 % Lymphocytes % 10 % Monocytes % 3 % Eosinophils % 1 % Basophils % 0 % Neutrophils # 17.3 H (1.3-7.7) k/uL Lymphocytes # 2.1 (1.0-4.8) k/uL Monocytes # 0.6 (0-1.0) k/uL Eosinophils # 0.1 (0-0.7) k/uL Basophils # 0.1 (0-0.2) k/uL Sodium (137-145) mmol/L Potassium (3.5-5.1) mmol/L Chloride (98-107) mmol/L Carbon Dioxide (22-30) mmol/L Anion Gap mmol/L BUN (7-17) mg/dL Creatinine (0.52-1.04) mg/dL Est GFR (CKD-EPI)AfAm (>60 ml/min/1.73 sqM) Est GFR (CKD-EPI)NonAf (>60 ml/min/1.73 sqM) Glucose (74-99) mg/dL Calcium (8.4-10.2) mg/dL Total Bilirubin (0.2-1.3) mg/dL AST (14-36) U/L ALT (4-34) U/L Alkaline Phosphatase (38-126) U/L Total Protein (6.3-8.2) g/dL Albumin (3.5-5.0) g/dL Lipase (23-300) U/L Urine Color Light Red Urine Appearance Cloudy H (Clear) Urine pH 5.5 (5.0-8.0) Ur Specific [place] 1.023 (1.001-1.035) Urine Protein 1+ H (Negative) Urine Glucose (UA) Negative (Negative) Urine Ketones Negative (Negative) Urine Blood Large H (Negative) Urine Nitrite Negative (Negative) Urine Bilirubin Negative (Negative) Urine Urobilinogen <2.0 (<2.0) mg/dL Ur Leukocyte Esterase Large H (Negative) Urine RBC >182 H (0-5) /hpf Urine WBC 55 H (0-5) /hpf Ur Squamous Epith Cells 4 (0-4) /hpf Calcium Oxalate Crystal Few H (None) /hpf Urine Bacteria Rare H (None) /hpf Urine Mucus Rare H (None) /hpf Urine HCG, Qual Not Detected (Not Detectd) 10/02/19 Range/Units 14:32 WBC (3.8-10.6) k/uL RBC (3.80-5.40) m/uL Hgb (11.4-16.0) gm/dL Hct (34.0-46.0) % MCV (80.0-100.0) fL MCH (25.0-35.0) pg MCHC (31.0-37.0) g/dL RDW (11.5-15.5) % Plt Count (150-450) k/uL Neutrophils % % Lymphocytes % % Monocytes % % Eosinophils % % Basophils % % Neutrophils # (1.3-7.7) k/uL Lymphocytes # (1.0-4.8) k/uL Monocytes # (0-1.0) k/uL Eosinophils # (0-0.7) k/uL Basophils # (0-0.2) k/uL Sodium 139 (137-145) mmol/L Potassium 4.1 (3.5-5.1) mmol/L Chloride 108 H (98-107) mmol/L Carbon Dioxide 23 (22-30) mmol/L Anion Gap 8 mmol/L BUN 12 (7-17) mg/dL Creatinine 0.78 (0.52-1.04) mg/dL Est GFR (CKD-EPI)AfAm >90 (>60 ml/min/1.73 sqM) Est GFR (CKD-EPI)NonAf >90 (>60 ml/min/1.73 sqM) Glucose 196 H (74-99) mg/dL Calcium 9.5 (8.4-10.2) mg/dL Total Bilirubin 0.5 (0.2-1.3) mg/dL AST 26 (14-36) U/L ALT 28 (4-34) U/L Alkaline Phosphatase 78 (38-126) U/L Total Protein 7.2 (6.3-8.2) g/dL Albumin 4.4 (3.5-5.0) g/dL Lipase 55 (23-300) U/L Urine Color Urine Appearance (Clear) Urine pH (5.0-8.0) Ur Specific [place] (1.001-1.035) Urine Protein (Negative) Urine Glucose (UA) (Negative) Urine Ketones (Negative) Urine Blood (Negative) Urine Nitrite (Negative) Urine Bilirubin (Negative) Urine Urobilinogen (<2.0) mg/dL Ur Leukocyte Esterase (Negative) Urine RBC (0-5) /hpf Urine WBC (0-5) /hpf Ur Squamous Epith Cells (0-4) /hpf Calcium Oxalate Crystal (None) /hpf Urine Bacteria (None) /hpf Urine Mucus (None) /hpf Urine HCG, Qual (Not Detectd) Disposition Clinical Impression: Ureteral calculi Disposition: HOME SELF-CARE Condition: Stable Instructions (If sedation given, give patient instructions): Kidney Stones (ED) Additional Instructions: Follow-up with primary care provider tomorrow follow-up with urologist tomorrow. Take antibiotics as directed. Strain your urine as we discussed Take pain medication only as needed. Return immediately ER if you start developing fevers worsening pain nausea or vomiting. Or if symptoms worsen in anyway. Drink lots of fluids. Have outpatient US of adnexal region. Prescriptions: Sulfamethox-Tmp 800-160Mg [Bactrim DS 800-160 mg] 1 tab PO Q12HR 10 Days #20 tab Is patient prescribed a controlled substance at d/c from ED?: No Referrals: Jeannette Brady MD [Primary Care Provider] - 1-2 days James Hammond MD [STAFF PHYSICIAN] - 1-2 days
[2019-10-02 14:47] LABS: Basophils # (A) 0.1 k/uL (0-0.2); Basophils % (A) 0 %; Eosinophils # (A) 0.1 k/uL (0-0.7); Eosinophils % (A) 1 %; HCT 43.7 % (34.0-46.0); Lymphocytes # (A) 2.1 k/uL (1.0-4.8); Lymphocytes % (A) 10 %; MCH 29.4 pg (25.0-35.0); MCHC 31.9 g/dL (31.0-37.0); MCV 92.1 fL (80.0-100.0); Mean Platelet Volume 6.5; Monocytes # (A) 0.6 k/uL (0-1.0); Monocytes % (A) 3 %; Neutrophils # (A) 17.3 k/uL (1.3-7.7); Neutrophils % (A) 86 %; Platelet Count 384 k/uL (150-450); RBC 4.75 m/uL (3.80-5.40); RDW 12.2 % (11.5-15.5); WBC 20.2 k/uL (3.8-10.6)
[2019-10-02 14:56] LABS: ALT 28 U/L (4-34); AST 26 U/L (14-36); African American GFR (CKD) >90 (>60 ml/min/1.73 sqM); Albumin 4.4 g/dL (3.5-5.0); Alkaline Phosphatase 78 U/L (38-126); Anion Gap 8 mmol/L; Blood Urea Nitrogen 12 mg/dL (7-17); Calcium 9.5 mg/dL (8.4-10.2); Carbon Dioxide 23 mmol/L (22-30); Chloride 108 mmol/L (98-107); Glucose 196 mg/dL (74-99); Non-African American GFR(CKD) >90 (>60 ml/min/1.73 sqM); Potassium 4.1 mmol/L (3.5-5.1); Sodium 139 mmol/L (137-145); Total Bilirubin 0.5 mg/dL (0.2-1.3); Total Protein 7.2 g/dL (6.3-8.2)
--- NOTE | 2019-10-02 15:00 | CT ---
EXAMINATION TYPE: CT abdomen pelvis wo con DATE OF EXAM: 10/02/2019 COMPARISON: 07/05/2010 HISTORY: LT flank pain CT DLP: 1947 mGycm Automated exposure control for dose reduction was used. TECHNIQUE: Helical acquisition of images was performed from the lung bases through the pelvis. FINDINGS: LUNG BASES: No significant abnormality is appreciated. LIVER/GB: Liver prominent in size. Correlate for cardiomegaly. Postcholecystectomy changes noted. PANCREAS: No significant abnormality is seen. SPLEEN: No significant abnormality is seen. ADRENALS: No significant abnormality is seen. KIDNEYS: Left kidney: There is a mild left hydronephrosis. There is a 3 mm calcification at the level of the U VJ. Right kidney: There is cortical loss involving the right kidney kidney with no hydronephrosis. There are 3 less than 5 mm calculi. ADENOPATHY: None visualized. OSSEOUS STRUCTURES: No significant abnormality is seen. BOWEL: No significant abnormality is seen. OTHER: There is a 2.8 cm soft tissue nodule in the left adnexa likely related to enlarged left ovary recommend ultrasound the pelvis on a short-term basis. IMPRESSION: 1. Mild left hydronephrosis secondary to a 3 mm left UVJ calculus. 2. Significant cortical loss involving the right kidney compatible chronic medical renal disease. Non obstructing right-sided nephrolithiasis. 3. 2.8 cm soft tissue mass left adnexa likely related to left ovary recommend follow-up pelvic ultras ound.
[2019-10-02] MEDS ORDERED: HYDROmorphone 0.5 MG/0.5 ML SYRINGE IVP STA ×2 (15:27→16:18)
[2019-10-02] MEDS ORDERED: METOCLOPRAMIDE 5 MG/ML 2 ML VIAL IVP STA (15:27)
[2019-10-02 15:53] LABS: Appearance,Urine Cloudy (Clear); Bacteria,Urine Rare /hpf; Bilirubin,Urine Negative (Negative); Blood,Urine Large (Negative); Calcium Oxalate Crystals,Urine Few /hpf; Color,Urine Light Red; Glucose,Urine (UA) Negative (Negative); Ketones,Urine Negative (Negative); Leukocyte Esterase,Urine Large (Negative); Mucus,Urine Rare /hpf; Nitrite,Urine Negative (Negative); PH, Urine 5.5 (5.0-8.0); Protein,Urine 1+ (Negative); RBC,Urine >182 /hpf (0-5); Specific Gravity,Urine 1.023 (1.001-1.035); Squamous Epithelial Cell,Urine 4 /hpf (0-4); Urobilinogen,Urine <2.0 mg/dL (<2.0); WBC,Urine 55 /hpf (0-5)
[2019-10-02] MEDS ORDERED: SULFAMETH-TMP DS STARTER PACK 2 TAB BTL PO STA (16:49)
[2019-10-02] MEDS ORDERED: SULFAMETHOX-TMP 800-160MG 1 EACH TAB PO STA (16:49)
[2019-10-02] MEDS ORDERED: ACET/COD 300 MG/30 MG STARTER PACK 6 TAB BTL PO STA (16:56)
[2019-10-02 17:27] VITALS: BP 143/88; PULSE 60; TEMP 98
== END 2019-10-02 17:28 | disposition home or self-care (01) ==
LOC: EC 13:29
DX: N13.2 Hydronephrosis with renal and ureteral calculous obstruction (principal); D72.829 Elevated white blood cell count, unspecified; E11.9 Type 2 diabetes mellitus without complications; F41.9 Anxiety disorder, unspecified; F32.9 Major depressive disorder, single episode, unspecified; Z79.84 Long term (current) use of oral hypoglycemic drugs; Z79.899 Other long term (current) drug therapy; Z88.0 Allergy status to penicillin; Z88.8 Allergy status to other drugs, medicaments and biological substances; Z91.048 Other nonmedicinal substance allergy status; Z87.891 Personal history of nicotine dependence; Z90.49 Acquired absence of other specified parts of digestive tract
CPT/HCPCS: 36415; 80053; 83690; 85025; 81001; 81025; 87086; 74176; 99285; 96374; 96375 ×3; 96376; 96361 ×3; J2270; J2765; J2405; J1170

== ENCOUNTER → 2019-10-28 | Outpatient (CLI) | payer OTHER ==
--- NOTE | 2019-10-28 15:26 | US ---
EXAMINATION TYPE: US pelvic complete DATE OF EXAM: 10/28/2019 COMPARISON: US 06/13/18, CT 10/02/19 CLINICAL HISTORY: R19.09 Intraabdominal and pelvic mass/lump. TECHNIQUE: Transabdominal (TA). Transabdominal sonographic images of the pelvis were acquired. Tra nsvaginal sonographic images were medically necessary to better assess the following anatomy: Date of LMP: 09/30/19 EXAM MEASUREMENTS: Uterus: 8.5 x 5.7 x 4.2 cm Endometrial Stripe: 0.6 cm Right Ovary: 2.9 x 2.1 x 2.0 cm Left Ovary: 3.5 x 2.5 x 2.5 cm 1. Uterus: Anteverted wnl 2. Endometrium: wnl 3. Right Ovary: No masses seen 4. Left Ovary: No masses seen Spectral, color and waveform doppler imaging shows good arterial and venous flow within the ovaries ; there is no evidence for ovarian torsion. 5. Bilateral Adnexa: wnl 6. Posterior cul-de-sac: wnl IMPRESSION: No distinct abnormality is appreciated.
== END | disposition home or self-care (01) ==
LOC: RADUSWWP 14:51
PROVIDERS: ATTEND Family Medicine
DX: N83.8 Other noninflammatory disorders of ovary, fallopian tube and broad ligament (principal)
CPT/HCPCS: 76856

== ENCOUNTER → 2023-03-30 | Outpatient (CLI) | payer OTHER ==
--- NOTE | 2023-04-02 19:30 | MM ---
Reason for Exam: Screening (asymptomatic). Baseline mammogram. Patient History: Menarche at age 10. First Full-Term at age 17. Last menstrual period: 03/01/2023 Risk Values: Susi 5 year model risk: 0.4%. NCI Lifetime model risk: 8.0%. Prior Study Comparison: Patient's first Mammogram. Tissue Density: There are scattered fibroglandular densities. Findings: Analyzed By CAD. No significant mass, suspicious microcalcification, or other discrete abnormality is seen. Overall Assessment: Negative, BI-RAD 1 Management: Screening Mammogram of both breasts in 1 year. . Patient should continue monthly self-breast exams. A clinical breast exam by your physician is recommended on an annual basis. This exam should not preclude additional follow-up of suspicious palpable abnormalities. Note on Susi scores and lifetime risk: 1. A Susi score greater than 3% is considered moderate risk. If this is the case, consider specialist referral to assess eligibility for a risk reducing agent. 2. If overall lifetime risk for the development of breast cancer is 20% or higher, the patient may qualify for future screening with alternating mammogram and breast MRI. Electronically signed and approved by: Chani Mcdaniel M.D. Radiologist
== END | disposition home or self-care (01) ==
LOC: RADMAMWWP 14:03
PROVIDERS: ATTEND Family Medicine
DX: Z12.31 Encounter for screening mammogram for malignant neoplasm of breast (principal)
CPT/HCPCS: 77063; 77067

== ENCOUNTER → 2023-04-16 | Outpatient (CLI) | payer OTHER ==
--- NOTE | 2023-04-16 22:08 | US ---
EXAMINATION TYPE: US pelvis complete transvag DATE OF EXAM: 04/16/2023 COMPARISON: 05/20/2021 CLINICAL INDICATION: Female, 42 years old with history of R10.2 PELVIC AND PERINEAL PAIN; pain TECHNIQUE: Transvaginal (TV) and Transabdominal (TA) . Transabdominal sonographic images of the pel vis were acquired. Transvaginal sonographic images were medically necessary to better assess the fol lowing anatomy: rt ovary EXAM MEASUREMENTS: Uterus: 9.0 x 4.1 x 4.4 cm Endometrial Stripe: .8 cm Right Ovary: 2.8 x 1.2 x 1.3 cm Left Ovary: 3.5 x 2.0 x 3.1 cm 1. Uterus: Anteverted. There is a hypoechoic area 1.9 x 1.6 x 1.1 cm at the left posterior uterine body. Likely intramural fibroid, though not as well-seen on the transvaginal scan. 2. Endometrium: wnl 3. Right Ovary: wnl 4. Left Ovary: follicles seen measuring up to 1.5 cm. 5. Bilateral Adnexa: wnl 6. Posterior cul-de-sac: wnl IMPRESSION: 1. Suspect a 1.9 cm left posterior uterine body intramural fibroid though not as well seen on the tra nsvaginal scan. 2. Normal follicular change in the left ovary.
== END | disposition home or self-care (01) ==
LOC: RADUSWWP 14:05
PROVIDERS: ATTEND Family Medicine
DX: R10.2 Pelvic and perineal pain (principal)
CPT/HCPCS: 76830; 76856

== ENCOUNTER → 2023-05-05 | Outpatient (CLI) | payer OTHER ==
--- NOTE | 2023-05-05 09:10 | XR ---
EXAMINATION TYPE: XR chest 2V DATE OF EXAM: 05/05/2023 COMPARISON: Chest x-ray May 21, 2017 HISTORY: Dyspnea TECHNIQUE: Frontal and lateral views of the chest are obtained. FINDINGS: There is no suspicious new focal air space opacity, pleural effusion, or pneumothorax see n. The cardiac silhouette size is stable and within normal limits. The osseous structures are inta ct. IMPRESSION: No acute process. No significant change from prior.
== END | disposition home or self-care (01) ==
LOC: RADXRMAIN 08:41
PROVIDERS: ATTEND Family Medicine
DX: R06.00 Dyspnea, unspecified (principal)
CPT/HCPCS: 71046

== ENCOUNTER → 2024-04-28 | Outpatient (CLI) | payer OTHER ==
--- NOTE | 2024-04-28 15:10 | US ---
EXAMINATION TYPE: US pelvic complete DATE OF EXAM: 04/28/2024 COMPARISON: 04/16/23 US CLINICAL INDICATION: Female, 43 years old with history of R10.2 PELVIC AND PERINEAL PAIN; F/U lt ova greg cyst first noted on 2019 CT TECHNIQUE: Transabdominal (TA). Transabdominal grayscale sonographic images of the pelvis were acquired. Doppler imaging: Not performed. FINDINGS: Date of LMP: ablation EXAM MEASUREMENTS: Uterus: 8.2x3.7x4.7 cm Endometrial Stripe: 0.5 cm Right Ovary: 2.6x1.5x1.2 cm Left Ovary: 2.4x1.0x1.9 cm 1. Uterus: Anteverted wnl 2. Endometrium: wnl 3. Right Ovary: wnl 4. Left Ovary: 2.0x1.9x1.8cm cystic area 5. Bilateral Adnexa: Obscured by overlying bowel gas 6. Posterior cul-de-sac: wnl IMPRESSION: There is 2.1 cm dominant follicle or simple-appearing thin-walled cyst in the left ovary on current study. [facility], , 04/28/2024 3:08 PM
--- NOTE | 2024-04-28 15:24 | MM ---
Reason for Exam: Screening (asymptomatic). Last mammogram was performed 1 year(s) and 1 month(s) ago. Patient History: Menarche at age 10. First Full-Term at age 17. Risk Values: Susi 5 year model risk: 0.5%. NCI Lifetime model risk: 8.0%. Prior Study Comparison: 03/30/2023 Bilateral MG 3D screening mammo w/cad, [facility]. Tissue Density: There are scattered areas of fibroglandular density. Findings: Analyzed By CAD. Right breast: There is no suspicious group of microcalcifications or new suspicious mass. Left breast: There is no suspicious group of microcalcifications or new suspicious mass. Overall Assessment: Negative, BI-RAD 1 Management: Screening Mammogram of both breasts in [address] [facility] will attempt to contact patient to return for supplemental views and ultrasound if indicated. Patient should continue monthly self-breast exams. A clinical breast exam by your physician is recommended on an annual basis. This exam should not preclude additional follow-up of suspicious palpable abnormalities. Note on Susi scores and lifetime risk: 1. A Susi score greater than 3% is considered moderate risk. If this is the case, consider specialist referral to assess eligibility for a risk reducing agent. 2. If overall lifetime risk for the development of breast cancer is 20% or higher, the patient may qualify for future screening with alternating mammogram and breast MRI. [facility], , 04/28/2024 3:22 PM. Electronically signed and approved by: Solomon Arauz DO
== END | disposition home or self-care (01) ==
LOC: RADMAMWWP 14:20
PROVIDERS: ATTEND Family Medicine
DX: Z12.31 Encounter for screening mammogram for malignant neoplasm of breast (principal); R92.323 Mammographic fibroglandular density, bilateral breasts; N83.202 Unspecified ovarian cyst, left side
CPT/HCPCS: 76856; 77063; 77067